=== PATIENT | female | born 1970 | race African-American/Black ===

== ENCOUNTER 2016-11-05 21:56 | Emergency (ER) | payer OTHER ==
[~2016-11-05] VITALS: Ht 154.9 cm; Wt 91.0 kg
[2016-11-06] MEDS ORDERED: FAMOTIDINE 20MG/2ML VIAL IV STA (02:39)
[2016-11-06] MEDS ORDERED: MAGNESIUM/ALUMINUM HYDROXIDE/SIMETHICONE 30ML UDC PO STA (02:39)
[2016-11-06] MEDS ORDERED: SODIUM CHLORIDE 0.9% 1,000 ML IV ONE (02:39)
[2016-11-06] MEDS ORDERED: ONDANSETRON HCL 4MG/2ML VIAL IV STA (02:39)
[2016-11-06] MEDS ORDERED: KETOROLAC 30MG/ML VIAL IV STA (02:39)
[2016-11-06 02:50] LABS: CLARITY URINE CLEAR (CLEAR); COLOR URINE YELLOW (YELLOW); GLUCOSE URINE NEGATIVE (NEGATIVE); KETONES URINE NEGATIVE (NEGATIVE); LEUKOCYTE ESTERASE URINE NEGATIVE (NEGATIVE); NITRITE URINE NEGATIVE (NEGATIVE); OCCULT BLOOD URINE NEGATIVE (NEGATIVE); PH URINE 6.5 (4.5-8.0); PROTEIN URINE NEGATIVE (NEGATIVE); SPECIFIC GRAVITY URINE 1.008 (1.005-1.030)
[2016-11-06 03:04] LABS: BASOPHILS % 0.5 % (0.0-2.0); EOSINOPHILS % 1.3 % (0.0-5.0); HEMATOCRIT. 40.1 % (36.0-48.0); HEMOGLOBIN. 13.4 g/dL (12.0-16.0); LYMPHOCYTES % 35.5 % (20.0-50.0); MEAN CORPUSCULAR HEMOGLOBIN 28.2 pg (28.0-32.0); MEAN CORPUSCULAR VOLUME 84.4 fL (81.0-99.0); MEAN PLATELET VOLUME 8.4 fl (7.4-10.4); MONOCYTES % 4.5 % (2.0-8.0); NEUTROPHILS % 58.2 % (40.0-76.0); PLATELET 302 x1000/uL (130-400); RED BLOOD CELL COUNT 4.76 mill/uL (4.2-5.4); RED CELL DISTRIBUTION WIDTH 14.9 % (11.6-14.6)
[2016-11-06 03:08] LABS: CARBON DIOXIDE 32 mEq/L (21-32); CHLORIDE 99 mEq/L (98-107)
[2016-11-06 05:16] VITALS: BP 136/71
== END 2016-11-06 05:20 | disposition home or self-care (01) ==
LOC: ER 21:57
DX: R10.84 Generalized abdominal pain (principal); R11.0 Nausea; D25.9 Leiomyoma of uterus, unspecified; Z98.890 Other specified postprocedural states
CPT/HCPCS: 36415; 74176; 80053; 81003; 81025; 83690; 85025; 96361; 96374; 96375; 99285; J1885; J2405; J3490; J7030; Z7610

== ENCOUNTER 2017-02-28 13:52 | Emergency (ER) | payer OTHER ==
[~2017-02-28] VITALS: Ht 160 cm; Wt 97.0 kg
[2017-02-28 16:22] VITALS: BP 133/61
== END 2017-02-28 17:25 | disposition home or self-care (01) ==
LOC: ER 14:28
DX: I10 Essential (primary) hypertension (principal); H57.13 Ocular pain, bilateral
CPT/HCPCS: 99281; Z7610

== ENCOUNTER 2018-12-04 12:38 | Emergency (ER) | payer OTHER ==
[~2018-12-04] VITALS: Ht 160 cm; Wt 93.0 kg
[2018-12-04] MEDS ORDERED: LOSARTAN (12:57)
[2018-12-04 13:35] LABS: CHLORIDE 105 mEq/L (98-107)
[2018-12-04 13:44] LABS: BASOPHILS % 0.3 % (0.0-2.0); EOSINOPHILS % 2.4 % (0.0-5.0); HEMATOCRIT. 39.4 % (36.0-48.0); HEMOGLOBIN. 13.6 g/dL (12.0-16.0); LYMPHOCYTES % 37.4 % (20.0-50.0); MEAN CORPUSCULAR HEMOGLOBIN 30.5 pg (28.0-32.0); MEAN CORPUSCULAR VOLUME 88.7 fL (81.0-99.0); MEAN PLATELET VOLUME 8.5 fl (7.4-10.4); NEUTROPHILS % 55.9 % (40.0-76.0); PLATELET 323 x1000/uL (130-400); RED BLOOD CELL COUNT 4.45 mill/uL (4.2-5.4); RED CELL DISTRIBUTION WIDTH 13.6 % (11.6-14.6)
[2018-12-04 17:43] VITALS: BP 145/90
== END 2018-12-04 17:47 | disposition home or self-care (01) ==
LOC: ER 12:38
DX: R07.89 Other chest pain (principal); I10 Essential (primary) hypertension; Z98.890 Other specified postprocedural states; Z88.0 Allergy status to penicillin
CPT/HCPCS: 36415; 71045; 83880; 84484; 93005; 99284